=== PATIENT | female | born 1960 | race Caucasian/White ===

== ENCOUNTER → 2023-02-03 | Outpatient (CLI) | payer BC, OTHER | LOC: COL.RAD 12:39 | DX: G44.89 Other headache syndrome (principal); Z96.89 Presence of other specified functional implants ==

== ENCOUNTER → 2023-02-03 | Outpatient (CLI) | payer BC, OTHER | LOC: MHCPAIN 10:52 | DX: M79.2 Neuralgia and neuritis, unspecified (principal); G44.89 Other headache syndrome | CPT/HCPCS: G0463 ==

== ENCOUNTER → 2023-03-07 | Outpatient (CLI) | payer BC, OTHER | LOC: MHCPAIN 11:25 | DX: M79.2 Neuralgia and neuritis, unspecified (principal); M54.2 Cervicalgia; G44.89 Other headache syndrome | CPT/HCPCS: G0463 ==

== ENCOUNTER 2023-04-04 11:00 | Outpatient (RCR) | payer BC, OTHER | END 2023-04-05 | disposition home or self-care (01) | LOC: PT.GENESIS | DX: M54.2 Cervicalgia (principal) ==

== ENCOUNTER → 2023-04-20 | Outpatient (CLI) | payer BC, OTHER | LOC: MHCPAIN 10:25 | DX: M79.2 Neuralgia and neuritis, unspecified (principal); M54.2 Cervicalgia; G44.209 Tension-type headache, unspecified, not intractable | CPT/HCPCS: G0463 ==

== ENCOUNTER 2023-04-25 13:45 | Outpatient (RCR) | payer BC, OTHER | END 2023-05-04 | disposition home or self-care (01) | LOC: PT.GENESIS | DX: M54.2 Cervicalgia (principal); G44.86 Cervicogenic headache ==

== ENCOUNTER → 2023-06-13 | Outpatient (CLI) | payer BC, OTHER | LOC: MHCPAIN 14:31 | DX: G44.89 Other headache syndrome (principal); M54.2 Cervicalgia; M25.561 Pain in right knee | CPT/HCPCS: G0463 ==

== ENCOUNTER → 2023-06-26 | Outpatient (CLI) | payer BC, OTHER | LOC: MC.RAD 09:50 | DX: N64.89 Other specified disorders of breast (principal); Z85.3 Personal history of malignant neoplasm of breast ==

== ENCOUNTER → 2023-06-30 | Outpatient (CLI) | payer BC | LOC: MC.RAD 08:59 | DX: N63.25 Unspecified lump in the left breast, overlapping quadrants (principal); Z85.3 Personal history of malignant neoplasm of breast ==

== ENCOUNTER → 2023-07-24 | Outpatient (CLI) | payer BC, OTHER | LOC: COL.RAD 11:15 | DX: M17.11 Unilateral primary osteoarthritis, right knee (principal) ==